=== PATIENT | female | born 1970 | race Caucasian/White ===

== ENCOUNTER 2021-10-10 09:03 | Inpatient (IN) ==
--- NOTE | 2021-09-24 15:53 | PAT Medication Instructions ---
Medication Instructions Date of Service September 24, 2021 Home Medications amlodipine 10 mg tablet 20 mg PO QPM calcium carbonate 600 mg-vitamin D3 10 mcg (400 unit) tablet (Calcium 600 + D(3)) 1 tab PO QAM docusate sodium 100 mg capsule (Stool Softener) 100 mg PO QPM escitalopram oxalate 10 mg tablet 10 mg PO QAM estradiol 1 mg tablet 1 mg PO QAM fiber 1 tab PO QPM frovatriptan 2.5 mg tablet 2.5 mg PO UD PRN lorazepam 1 mg tablet 1 mg PO Q6H PRN milk thistle 175 mg capsule 175 mg PO QAM multivitamin 1 tab PO QPM trazodone 100 mg tablet 200 mg PO HS ASK your prescriber and surgeon estradiol 1 mg tablet 1 mg PO QAM STOP taking 2 weeks before surgery milk thistle 175 mg capsule 175 mg PO QAM DO NOT take the morning of surgery calcium carbonate 600 mg-vitamin D3 10 mcg (400 unit) tablet (Calcium 600 + D(3)) 1 tab PO QAM Take morning of surgery With a small sip of water, OTHERWISE NOTHING TO EAT OR DRINK AFTER MIDNIGHT: escitalopram oxalate 10 mg tablet 10 mg PO QAM frovatriptan 2.5 mg tablet 2.5 mg PO UD PRN(if needed) lorazepam 1 mg tablet 1 mg PO Q6H PRN(if needed) Take evening before surgery amlodipine 10 mg tablet 20 mg PO QPM docusate sodium 100 mg capsule (Stool Softener) 100 mg PO QPM fiber 1 tab PO QPM lorazepam 1 mg tablet 1 mg PO Q6H PRN(if needed) multivitamin 1 tab PO QPM trazodone 100 mg tablet 200 mg PO HS Other Notes If you have any questions please call us at [phone] or [phone] or [phone] or [phone]
--- NOTE | 2021-09-28 14:02 | Anesthesiology Consultation ---
Date of Service September 28, 2021 Assessment & Plan (1) Encounter for pre-operative examination: - awaiting surgeon ordered medical clearance. - PONV: Scop patch Rx for am DOS. - COVID screening: Per assessment on 09/28/2021: Travel screen negative, no known COVID-19 positive contacts or current COVID-19 related symptoms in past 2 weeks. Surgeon arranging preop COVID testing, scheduled 10/10/2021. Awaiting results. Chart Review Chart Review: Pending: Refer to Additional Notes / Consult section and Patient seen in Pre Admission Testing Teaching & Discussion Pre-Anesthesia Teaching/Discussion Notes: Instructed NPO after midnight before surgery, except medications with 15 cc of water. Medication instructions provided according to the PAT guidelines. History Surgery Operation Date: 10/12/21 10:05 Proposed Procedures p L4-L5 Decompression and Fusion, L5-S1 Hardware Removal - Mauro Landeros, Height/Weight Height: 5 ft 2 in Weight: 90.8 kg Allergies Allergy/AdvReac Type Severity Reaction Status Date / Time adhesive Allergy Mild BLISTERS Verified 09/24/21 07:33 Medications Home Medications Medication Instructions Recorded Confirmed Last Taken amlodipine 10 mg tablet 20 mg PO QPM 09/24/21 09/24/21 Unknown calcium carbonate 600 mg-vitamin 1 tab PO QAM 09/24/21 09/24/21 Unknown D3 10 mcg (400 unit) tablet (Calcium 600 + D(3)) docusate sodium 100 mg capsule 100 mg PO QPM 09/24/21 09/24/21 Unknown (Stool Softener) escitalopram oxalate 10 mg tablet 10 mg PO QAM 09/24/21 09/24/21 Unknown estradiol 1 mg tablet 1 mg PO QAM 09/24/21 09/24/21 Unknown fiber 1 tab PO QPM 09/24/21 09/24/21 Unknown frovatriptan 2.5 mg tablet 2.5 mg PO UD PRN 09/24/21 09/24/21 Unknown lorazepam 1 mg tablet 1 mg PO Q6H PRN 09/24/21 09/24/21 Unknown milk thistle 175 mg capsule 175 mg PO QAM 09/24/21 09/24/21 Unknown multivitamin 1 tab PO QPM 09/24/21 09/24/21 Unknown trazodone 100 mg tablet 200 mg PO HS 09/24/21 09/24/21 Unknown Past Medical History Medical History (Updated 09/28/21 @ 14:15 by Emely Mckinnon PA-C) Anxiety Chronic back pain Depression GERD (gastroesophageal reflux disease) controlled, stable per pt Hypertension controlled, stable per pt-higher when in pain or stressed Migraine Sleep apnea CPAP-IRREGULAR USE Patient denies h/o stroke, seizures, heart attack, heart failure, DM, blood mike ts or blood transfusions. Exercise / Class Metabolic Activity II 4-5 Yardwork/Stairs/Walk up hill (denies CP or SOB with 1 FOS) Past Family History Family History Father Family history of diabetes mellitus Past Surgical History Surgical History (Updated 09/28/21 @ 14:22 by Emely Mckinnon PA-C) History of abdominoplasty WITH LIPOSUCTION History of section X 2 History of cholecystectomy History of colonoscopy AGE 50 History of esophagogastroduodenoscopy (EGD) History of hysterectomy TOTAL Nausea and vomiting after administration of anesthetic agent S/P bilateral breast reduction Status post insertion of spinal cord stimulator 09/25/2021. Past Anesthesia History No Hx of Anesthesia Complications and No Family Hx of Anesthesia Complications History of PONV History of PONV (Pt reports needs both IV meds and scop patch, denies adverse effects with scop patch) and Hx of Motion Sickness Social History Smoking Status: Former smoker Do You Dip or Chew Tobacco: No Smoking End Date: QUIT CASUAL SMOKING 15 YRS AGO Hx Alcohol Use: Yes Alcohol type: hard liquor alcohol intake frequency: holidays/special occasions only Hx Substance Use: No Review of Systems Patient denies chest pain, shortness of breath, dyspnea on exertion, fever, chills, cough, wheezing, or palpitations. Physical Exam Vital Signs Vitals BP 154/98 manual with patient resting with ankles uncrossed (She states is regularly checking BP at home and readings are 140s/80s, she will continue home monitoring and PCP notification parameters as per her PCP) P 73 TEMP 98.8 SP02 98% on RA RESP 18 Physical Full cervical extension range of motion without pain Full TMJ range of motion TMD 3.5 finger breaths Mallampati Score 3 Dentition: intact, multiple caps/crowns-lower left and upper right sides; denies chipped, loose or missing teeth, implants or bridges Lungs: normal respiratory effort. Clear throughout to auscultation, no adventitious breath sounds Cardiac: regular rate and rhythm, no murmurs noted Carotid arteries: negative bruit bilat Extremities: no distal extremity edema Lab Results Anesthesia Preop Results Results Anesthesia Widget: WBC 7.22 K/uL (4.8-10.8) 09/28/21 Hgb 14.7 g/dL (12.0-16.0) 09/28/21 Hct 43.9 % (37-47) 09/28/21 Plt 234 K/uL (130-400) 09/28/21 Na 138 mmol/L (136-145) 09/28/21 K 4.4 mmol/L (3.5-5.1) 09/28/21 Cl 102 mmol/L (98-107) 09/28/21 CO2 30 mmol/L (21-32) 09/28/21 BUN 10 mg/dl (6-23) 09/28/21 Creat 0.87 mg/dl (0.6-1.2) 09/28/21 Glucose Level 92 mg/dl (70-99(Fasting)) 09/28/21 PT 10.5 Seconds (9.0-12.0) 09/28/21 PTT 26.3 Seconds (21.0-31.0) 09/28/21 INR 1.0 (0.9-1.1) 09/28/21 Urine Color Yellow 09/28/21 Urine Appearance Clear (Clear) 09/28/21 Urine pH 6.5 (4.5-7.5) 09/28/21 Urine Specific [place] 1.017 (1.000-1.030) 09/28/21 Urine Protein Negative (Negative) 09/28/21 Urine Glucose (UA) Negative (Negative) 09/28/21 Urine Ketones Negative (Negative) 09/28/21 Urine Blood Negative (Negative) 09/28/21 Urine Nitrite Negative (Negative) 09/28/21 Urine Bilirubin Negative (Negative) 09/28/21 Urine Urobilinogen Negative (Negative) 09/28/21 Urine Leukocyte Esterase Negative (Negative) 09/28/21 Blood Type B Positive 09/28/21 Antibody Screen NEGATIVE 09/28/21 Testing Electrocardiogram Date: 09/28/21 NSR, rate 68 bpm Chest X-Ray Date: 09/28/21 FINDINGS: Frontal and lateral radiographs of the chest demonstrate the cardiomediastinal silhouette to be within normal limits. The lungs are clear of alveolar opacities. There is no evidence for effusion bilaterally. There is no evidence for vascular congestion. There is no acute osseous pathology. IMPRESSION: 1. No acute cardiopulmonary disease.
[~2021-10-10 09:03] MED LIST: ACETAMINOPHEN 500 MG TAB PO SCH; CeleBREX 200 MG CAP PO SCH; GABAPENTIN 900 MG DOSE PO SCH; LR 15ML/HR IV SCH; SCOPOLAMINE 1 MG TDSY TD SCH; ceFAZolin 2000MG 2,000 MG/15 ML SYR IV SCH
[2021-10-10] MEDS ORDERED: NEOSTIGMINE METHYLSULFATE 1 MG/ML 10ML VIAL ONE (10:18)
[2021-10-10] MEDS ORDERED: ONDANSETRON INJ 2 MG/ML 2 ML VIAL ONE (10:18)
[2021-10-10] MEDS ORDERED: fentaNYL citrate 100 MCG/2 ML VIAL ONE (10:18)
[2021-10-10] MEDS ORDERED: MIDAZOLAM HCL 1 MG/ML 2ML VIAL ONE (10:18)
[2021-10-10] MEDS ORDERED: PROPOFOL IV EMULSION 10 MG/ML 20 ML VIAL IV ONE (10:18)
[2021-10-10] MEDS ORDERED: LIDOCAINE 2% 2 ML VIAL/AMP(20MG/ML) INFIL ONE (10:18)
[2021-10-10] MEDS ORDERED: DEXAMETHASONE SOD INJ 4 MG/ML VIAL ONE (10:18)
[2021-10-10] MEDS ORDERED: GLYCOPYRROLATE 0.2 MG/ML VIAL ONE (10:18)
[2021-10-10] MEDS ORDERED: ONDANSETRON INJ 2 MG/ML 2 ML VIAL IV PRN (10:48)
[2021-10-10] MEDS ORDERED: ePHEDrine sulfate 50 MG/ML AMP IV PRN (10:48)
[2021-10-10] MEDS ORDERED: ATROPINE SULFATE 0.1 MG/ML 10ML SYR IV PRN (10:48)
[2021-10-10] MEDS ORDERED: fentaNYL citrate 100 MCG/2 ML VIAL IV PRN (10:48)
[2021-10-10] MEDS ORDERED: HYDROmorphone INJ 1 MG/ML SYRINGE IV PRN ×2 (10:48→14:33)
--- NOTE | 2021-10-10 10:52 | History & Physical Bridge Note ---
Date of Service October 10, 2021 History & Physical Bridge Note I have examined the patient, reviewed the History & Physical and in the interval since the performance of the History & Physical I have noted the following changes of clinical significance: no changes noted
--- NOTE | 2021-10-10 10:53 | History & Physical Report ---
Date of Service October 10, 2021 Assessment & Plan (1) Lumbar stenosis with neurogenic claudication: Plan: L4-5 decompression fusion, L5-S1 hardware removal History of Present Illness Chief Complaint: Back and left leg pain Primary Care Provider: Marielle Peraza This is a 51-year-old female presents with chronic chest and back and leg pain after failing course of nonoperative care she is here for surgical intervention. Allergies Allergy/AdvReac Type Severity Reaction Status Date / Time adhesive Allergy Mild BLISTERS Verified 10/10/21 09:24 Home Medications Medication Instructions Recorded Confirmed Type amlodipine 10 mg tablet (Norvasc) 20 mg PO QPM 09/24/21 10/10/21 History calcium carbonate 600 mg-vitamin 1 tab PO QAM 09/24/21 10/10/21 History D3 10 mcg (400 unit) tablet (Calcium 600 + D(3)) docusate sodium 100 mg capsule 100 mg PO QPM 09/24/21 10/10/21 History (Stool Softener) escitalopram oxalate 10 mg tablet 10 mg PO QAM 09/24/21 10/10/21 History (Lexapro) estradiol 1 mg tablet (Estrace) 1 mg PO QAM 09/24/21 10/10/21 History fiber 1 tab PO QPM 09/24/21 10/10/21 History frovatriptan 2.5 mg tablet (Frova) 2.5 mg PO UD PRN 09/24/21 10/10/21 History lorazepam 1 mg tablet (Ativan) 1 mg PO Q6H PRN 09/24/21 10/10/21 History milk thistle 175 mg capsule 175 mg PO QAM 09/24/21 10/10/21 History multivitamin 1 tab PO QPM 09/24/21 10/10/21 History trazodone 100 mg tablet 200 mg PO HS 09/24/21 10/10/21 History lisinopril 10 mg tablet 10 - 12.5 mg PO DAILY 10/10/21 10/10/21 History Past Med/Surg History Medical History Anxiety Chronic back pain Depression GERD (gastroesophageal reflux disease) controlled, stable per pt Hypertension controlled, stable per pt-higher when in pain or stressed Migraine Sleep apnea CPAP-IRREGULAR USE Surgical History History of abdominoplasty WITH LIPOSUCTION History of section X 2 History of cholecystectomy History of colonoscopy AGE 50 History of esophagogastroduodenoscopy (EGD) History of hysterectomy TOTAL Nausea and vomiting after administration of anesthetic agent S/P bilateral breast reduction Status post insertion of spinal cord stimulator 09/25/2021. 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
[2021-10-10] MEDS ORDERED: BUPIVACAINE 0.5 % 5 MG/1 ML MPF 30ML VIAL ONE (11:07)
[2021-10-10] MEDS ORDERED: EPINEPHrine INJ 1 MG/ML AMP ONE (11:07)
[2021-10-10] MEDS ORDERED: ceFAZolin 330 MG/ML 1 GM VIAL ONE (11:15)
[2021-10-10] MEDS ORDERED: HYDROmorphone INJ 2 MG/ML SYR/VIAL ONE (11:33)
[2021-10-10] MEDS ORDERED: FLOSEAL HEMOSTATIC MATRIX 10ML TOP ONE (12:14)
--- NOTE | 2021-10-10 13:09 | Operative Report ---
Post Operative Report Pre & Post Diagnosis Operation Date: 10/10/21 10:55 Pre-Op Diagnosis: Lumbar stenosis with neurogenic claudication Post-Op Diagnosis: Lumbar stenosis with neurogenic claudication I identified the patient and participated in the time-out.: Yes Procedure Operation Date: 10/10/21 10:55 Actual Procedures #1 removal of posterior instrumentation L5-S1. #2 exploration of fusion L5-S1. #3 lumbar decompression bilateral medial facetectomies and foraminotomies L3-L4 L4-L5. #4 posterior spinal fusion L4-5 per #5 placement posterior instr umentation L4-5 per #6 interbody fusion L4-5 per #7 placement of titanium cage 14 x 26 mm at L4-5. #8 placement locally harvested morselized autograft in the posterior gutters. #9 placement of I factor combined with V toss in the interbody space and posterior lateral gutters. Surgeon Mauro Landeros, Plsql Developer Corina Monroe Estimated Blood Loss 200 Findings See Below The patient is 5 foot 2 inches tall weighing over 90 kg with a BMI in excess of 36. The patient's body habitus did contribute to significant technical difficulty requiring her deepest retractors and longest instruments in order to perform her procedure. Specimens None Indications This is a 81-year-old female with a history of a work injury requiring fusion and now has adjacent level disease with severe radiculopathy. After failing course of nonoperative care she is here for surgical invention. Description of Procedure Patient was met with identified informed consent obtained. Patient was then taken to the operative suite underwent a patient placed in a prone position the Moy on top of the [place] frame. All bony prominences well-padded eyes inspected to ensure no external pressure placed upon the. This point the lumbar spine was prepped and draped in a sterile fashion. Sharp dissection with the assistance of Bovie cautery was formed down to and exposing the lamina and transverse processes of L4 and instrumentation at L5-S1 bilaterally. I then proceeded to move the hardware bilaterally explore the fusion mass noting it to be mature and intact. Then performed a complete laminectomy of L4 partial laminectomy of L3 including bilateral medial facetectomies foraminotomies addressing all spinal stenosis. Significant foraminal disease was particularly noted at L3-L4 on the left. After complete decompression pedicle screws were placed in L4-L5 bilaterally with assistance of fluoroscopy the proper sized hans placed. By way of a transforaminal approach on the left complete discectomy of L4-L5 was performed endplates curetted to subcortical bleeding bone and a 14 x 26 mm titanium cage filled with I factor tapped in position. The rods were then compressed locked into final position bilaterally. The transverse processes of L4 and L5 burred to subcortical being bone. I factor combined with V toss and locally harvested morselized autograft was placed in the posterior gutters. 15 round JOSÉ LUIS drain inserted. The incision was then closed with 1 Vicryl in the fascia 2-0 Vicryl subcutaneously and 4 Monocryl for final skin closure. Steri- Strip sterile dressings placed. Patient will continue medical stabilization. Please note spinal cord monitoring visualized at the procedure no changes noted. Lastly Corina Monroe was present out the entire procedure and while the patient positioning complex portion of the surgery and final skin closure. I attest to the content of the Intraoperative Record and any orders documented therein. Any exceptions are noted below.
--- NOTE | 2021-10-10 13:37 | Fluoroscopy Report ---
FL lumbar spine 2-3V CLINICAL HISTORY: Hardware removal. L4-L5 discectomy and fusion. COMPARISON STUDY: Lumbar spine fluoroscopic images March 08, 2016. FLUOROSCOPY TIME: 16 seconds. FLUOROSCOPIC IMAGES: 2 FINDINGS: Previous hardware was removed at the L5-S1 level. Interval L4-L5 discectomy, posterior deco mpression and bilateral pedicle screw fusion is present. Hardware is intact. The surgeon was aware of the radiodensity within the operative bed. A right-sided hans was subsequently placed. IMPRESSION: Fluoroscopy provided during hardware removal and subsequent L4-L5 discectomy, posterior decompression and fusion. ACT 112: Negative or not required by law. Electronically signed by: Saul Ricci M.D. 10/10/2021 1:36 PM
[2021-10-10] MEDS ORDERED: ACETAMINOPHEN 1,000 MG/100 ML VIAL IV PRN (14:33)
[2021-10-10] MEDS ORDERED: DO NOT ADMINISTER PNEUMOCOCCAL VACCINE PRN (14:33)
[2021-10-10] MEDS ORDERED: FAMOTIDINE 20 MG TAB PO PRN (14:33)
[2021-10-10] MEDS ORDERED: ACETAMINOPHEN 500 MG TAB PO PRN (14:33)
[2021-10-10] MEDS ORDERED: PROMETHAZINE HCL 12.5 MG in SODIUM CHLORIDE 0.9% 50 ML IV PRN (14:33)
[2021-10-10] MEDS ORDERED: HYDROmorphone INJ 0.5 MG/0.5 ML SYR IV PRN (14:33)
[2021-10-10] MEDS ORDERED: hydrOXYzine HCl 25 MG TAB PO PRN (14:33)
[2021-10-10] MEDS ORDERED: ONDANSETRON 4 MG OD TAB PO PRN (14:33)
[2021-10-10] MEDS ORDERED: diphenhydrAMINE Capsule 25 MG CAP PO PRN (14:33)
[2021-10-10] MEDS ORDERED: MAGNESIUM HYDROXIDE SUSP 30 ML UDC PO PRN (14:33)
[2021-10-10] MEDS ORDERED: SOD PHOSPHATE/SOD BIPHOSPHATE ENEMA 132 ML BTL PR PRN (14:33)
[2021-10-10] MEDS ORDERED: bisacodyL 10 MG SUPP PR PRN (14:33)
[2021-10-10] MEDS ORDERED: DO NOT ADMINISTER FLU VACCINE PRN (14:33)
[2021-10-10] MEDS ORDERED: NALOXONE HCL 0.4 MG/1 ML VIAL/CARP IV PRN (14:33)
[2021-10-10] MEDS ORDERED: LORazepam 0.5 MG TAB PO PRN (14:33)
[2021-10-10] MEDS ORDERED: METOCLOPRAMIDE HCL INJ 5 MG/ML 2 ML VIAL IV PRN (14:33)
[2021-10-10] MEDS ORDERED: LORazepam 2 MG/1 ML VIAL IV PRN (14:33)
[2021-10-10] MEDS ORDERED: ALUMINUM/MAGNESIUM SUSP 30 ML UDC PO PRN (14:33)
[2021-10-10] MEDS: CHECK SCOPOLAMINE PATCH PLACEMENT SCH ×2 (14:35→15:27)
[2021-10-10] MEDS: LACTATED RINGER'S 1,000 ML IV SCH (15:00)
--- NOTE | 2021-10-10 15:22 | Hospitalist Consultation ---
Date of Consultation October 10, 2021 Assessment & Plan (1) Lumbar stenosis with neurogenic claudication: -S/p L4-5 fusion. -Defer IVF, pain management, bowel regimen, ABX to surgical team. (2) Hypertension: -Takes lisinopril/HCTZ 10/12.5 in the morning, may resume lisinopril tomorrow AM if creatinine remains at baseline. (3) Raynaud disease: -Takes amlodipine in the evening, may resume amlodipine home dosing tonight if BP > 110/75. (4) Anxiety: -Takes hydroxyzine as needed, continue this prn. (5) Depression: -Continue Lexapro 10 mg daily. (6) Migraine: - States she only gets migraines occasionally, has Compazine ordered prn which she has used in the past for migraines. Continue Compazine and frovatriptan as needed. (7) Insomnia: -Patient takes 200 mg at night, will reduce this dose to 50 mg for tonight given she is POD 0 coming off anesthesia and will be receiving pain medications on top of this. Supervising Physician Co-Signing Physician Notes Patient seen and examined, chart reviewed, case discussed with Radha Sam and I agree with the assessment and plan as above except as otherwise noted General: A&Ox3. NAD. Cooperative. HEENT: Atraumatic, normocephalic. Vision/hearing grossly intact. Pulm: CTAB A&P. -wheezes, -rales, -rhonchi. Symmetrical chest rise. No increase in work of breathing. No respiratory distress. Cardiac: RRR, -mrg. Radial pulses intact and symmetrical. Abdominal: Nontender, nondistended, soft. BS present. Ext: intact, atraumatic. Labs and images reviewed Sedation for medical management of a patient status post lumbar decompression and spinal fusion for lumbar stenosis with neurogenic claudication. Patient with history of anxiety, GERD, hypertension, depression. Baseline kidney function normal, last creatinine 0.87. Morning BMP pending. Resume lisinopril/HCTZ in morning, hold if creatinine bumps. May resume home dosing of evening amlodipine 10 mg p.o. nightly. Continue Lexapro. Will dose reduce trazodone from temporarily, resume full dose tomorrow nightly as needed. Protonix daily for stress GI prophylaxis and history of GERD. History of Present Illness Reason for Consultation: Medical management Attending Physician: Mauro Landeros, DO History of Present Illness Patient is a 51-year-old female with past medical history of lumbar stenosis, hypertension, anxiety, depression, GERD, insomnia, and occasional migraines who presents today for an L4-5 decompression fusion performed by Dr. Landeros after failed conservative treatment. Hospitalist service has been consulted for medical management. I am seeing patient postoperatively, she currently complains of mild back pain and nausea, had just received pain and nausea medications prior to my exam. She is otherwise without complaints, no fever/chills, headache, chest pain, shortness of breath, abdominal pain, numbness/tingling, weakness. Patient reports she was started on lisinopril within the past two weeks, BP currently 135/90. Other home meds include trazodone, lexapro, amlodipine (Raynaud's), estradiol, frovatriptan prn, hydroxyzine prn. Allergies Allergy/AdvReac Type Severity Reaction Status Date / Time adhesive Allergy Mild BLISTERS Verified 10/10/21 09:24 Home Medications Medication Instructions Recorded Confirmed Type amlodipine 10 mg tablet (Norvasc) 10 mg PO QPM 09/24/21 10/10/21 History calcium carbonate 600 mg-vitamin 1 tab PO QAM 09/24/21 10/10/21 History D3 10 mcg (400 unit) tablet (Calcium 600 + D(3)) docusate sodium 100 mg capsule 100 mg PO QPM 09/24/21 10/10/21 History (Stool Softener) escitalopram oxalate 10 mg tablet 10 mg PO QAM 09/24/21 10/10/21 History (Lexapro) estradiol 1 mg tablet (Estrace) 1 mg PO QAM 09/24/21 10/10/21 History fiber 1 tab PO QPM 09/24/21 10/10/21 History frovatriptan 2.5 mg tablet (Frova) 2.5 mg PO UD PRN 09/24/21 10/10/21 History lorazepam 1 mg tablet (Ativan) 1 mg PO Q6H PRN 09/24/21 10/10/21 History milk thistle 175 mg capsule 175 mg PO QAM 09/24/21 10/10/21 History multivitamin 1 tab PO QPM 09/24/21 10/10/21 History trazodone 100 mg tablet 200 mg PO HS 09/24/21 10/10/21 History lisinopril 10 mg tablet 10 - 12.5 mg PO DAILY 10/10/21 10/10/21 History Patient History Medical History (Updated 10/10/21 @ 16:16 by Radha Sam PA-C) Anxiety Chronic back pain Depression GERD (gastroesophageal reflux disease) controlled, stable per pt Hypertension controlled, stable per pt-higher when in pain or stressed Migraine Sleep apnea CPAP-IRREGULAR USE Surgical History History of abdominoplasty WITH LIPOSUCTION History of section X 2 History of cholecystectomy History of colonoscopy AGE 50 History of esophagogastroduodenoscopy (EGD) History of hysterectomy TOTAL Nausea and vomiting after administration of anesthetic agent S/P bilateral breast reduction Status post insertion of spinal cord stimulator 09/25/2021. 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 Beliefs That Will Affect Care: None Current Living Situation: Spouse current occupational status: retired Other Information That Helps Us Care for You: No Feels Safe at Home: Yes Safety Concerns: Feels Safe At This Time Assistive Devices: None Review of Systems Review of Systems: Constitutional: No fever, sweats or chills Eyes: No diplopia, no worsening or blurred vision ENT: normal hearing, no trouble swallowing Respiratory: No cough, sputum, dyspnea at rest or on exertion Cardiovascular: No chest pain, tightness or palpitations Abdomen:repotrs nausea; no pain, vomiting, diarrhea or constipation Musculoskeletal: mild back pain at site of operation; calf pain, swelling Neurologic: No weakness, numbness/tingling, or balance problems Psychiatric: No anxiety or depression Skin: No rash or itch Physical Exam Physical Exam: General: awake, alert, no apparent distress Head: Normocephalic, atraumatic ENT: PERRL, EOMI, no pharyngeal exudate, mucous membranes moist Chest: Clear to auscultation, on room air, no adventitious breath sounds Cardiac: Regular rate and rhythm, no murmur, no JVD, normal peripheral pulses, good capillary refill Abdominal: NABS x 4 quadrants, soft, nontender to palpation, no rebound, guarding or tenderness Extremities: Normal inspection, no peripheral edema or erythema, calfs nontender to palpation Psych: Normal mood and affect Neuro: AAO x 3, strength intact bilaterally and rated 5/5, no motor deficits, speech is clear, no peripheral sensory deficits Skin: no rash or erythema Results & Data Results & Data ([facility]) Vital Signs (Past 12 Hours) Vital Signs Temp Pulse Pulse Resp BP BP Pulse Ox 10/10/21 14:55 36.3 C L 77 16 122/79 94 10/10/21 14:25 36.6 C 79 16 133/86 93 10/10/21 13:55 86 17 108/89 96 10/10/21 13:45 92 H 10 L 133/90 96 10/10/21 13:35 93 H 11 L 133/74 95 10/10/21 13:28 36.5 C 89 15 111/78 95 10/10/21 09:28 36.6 C 72 20 141/96 H 97 Diagnostic Findings Lumbar Spine X-Ray 10/10/21 10:55 FL lumbar spine 2-3V CLINICAL HISTORY: Hardware removal. L4-L5 discectomy and fusion. COMPARISON STUDY: Lumbar spine fluoroscopic images March 08, 2016. FLUOROSCOPY TIME: 16 seconds. FLUOROSCOPIC IMAGES: 2 FINDINGS: Previous hardware was removed at the L5-S1 level. Interval L4-L5 discectomy, posterior decompression and bilateral pedicle screw fusion is present. Hardware is intact. The surgeon was aware of the radiodensity within the operative bed. A right-sided hans was subsequently placed. IMPRESSION: Fluoroscopy provided during hardware removal and subsequent L4-L5 discectomy, posterior decompression and fusion. PG Care Time/CCT Total # of Minutes Spent Total Time Spent with Patient: Total time spent is greater than 50% in coordination of care (as documented) at patient's floor/unit and/or counseling patient: Coding Level of Care Code 29258 Inpt Consult Level 2 Diagnoses Lumbar stenosis with neurogenic claudication M48.062 Hypertension I10 Anxiety F41.9 Depression F32.A Migraine G43.909 Insomnia G47.00 Raynaud disease I73.00
[2021-10-10] MEDS: ONDANSETRON INJ 2 MG/ML 2 ML VIAL IV PRN ×2 (15:26→20:27)
[2021-10-10] MEDS: KETOROLAC TROMETHAMINE 15 MG/ML VIAL IV SCH ×2 (15:27→20:16)
--- NOTE | 2021-10-10 15:55 | Anesthesiology Progress Note ---
Date of Service October 10, 2021 Anesthesia Post Procedure Vital Signs Vital Signs: Temp Pulse Pulse Resp BP BP Pulse Ox 10/10/21 15:22 36.5 C 78 16 135/90 93 10/10/21 14:55 36.3 C L 77 16 122/79 94 10/10/21 14:25 36.6 C 79 16 133/86 93 10/10/21 13:55 86 17 108/89 96 10/10/21 13:45 92 H 10 L 133/90 96 10/10/21 13:35 93 H 11 L 133/74 95 10/10/21 13:28 36.5 C 89 15 111/78 95 10/10/21 09:28 36.6 C 72 20 141/96 H 97 Pain Intensity Back: Pain Intensity: 6 Transfer of Care Handoff Completed per policy Notes Mental Status: alert / awake / arousable and participated in evaluation Patient Amnestic to Procedure: Yes Nausea / Vomiting: adequately controlled Pain: adequately controlled Airway Patency, RR, SpO2: stable & adequate BP & HR: stable & adequate Hydration State: stable & adequate Anesthetic Complications: no major complications apparent and Pt Satisfied with anesthetic care
[2021-10-10] MEDS: ceFAZolin 2000MG 2,000 MG/15 ML SYR IV SCH (20:10)
[2021-10-10] MEDS: traMADol HCL 50 MG TABLET PO PRN (20:16)
[2021-10-10] MEDS: DOCUSATE SODIUM/SENNA 50/8.6MG TAB PO SCH (20:17)
[2021-10-10] MEDS: MULTIVITAMIN TAB PO SCH (20:17)
[2021-10-10] MEDS: DOCUSATE SODIUM 100 MG CAP PO SCH (20:18)
[2021-10-10] MEDS: CALCIUM POLYCARBOPHIL 625MG TAB PO SCH (20:18)
[2021-10-10] MEDS ORDERED: traZODone HCL 100 MG TAB PO SCH (21:00)
[2021-10-10] MEDS ORDERED: amLODIPine BESYLATE 5 MG TAB PO SCH (21:00)
[2021-10-10] MEDS: traZODone HCL 50 MG TAB PO PRN (22:04)
[2021-10-11] MEDS: LACTATED RINGER'S 1,000 ML IV SCH (00:56)
[2021-10-11] MEDS: CHECK SCOPOLAMINE PATCH PLACEMENT SCH ×3 (00:56→16:16)
[2021-10-11] MEDS: KETOROLAC TROMETHAMINE 15 MG/ML VIAL IV SCH ×2 (03:22→09:00)
[2021-10-11] MEDS: ceFAZolin 2000MG 2,000 MG/15 ML SYR IV SCH (03:28)
[2021-10-11] MEDS: POLYETHYLENE (MIRALAX) 17 GM PACK PO SCH ×2 (06:04→12:38)
[2021-10-11] MEDS: traMADol HCL 50 MG TABLET PO PRN ×2 (06:16→17:54)
[2021-10-11 07:29] LABS: Basophils # (auto) 0.02 K/uL (0-0.2); Basophils % (auto) 0.1 %; Eosinophils # (auto) 0.01 K/uL (0-0.5); Eosinophils % (auto) 0.1 %; Hematocrit (blood only) 36.2 % (37-47); Immature Granulocytes # (auto) 0.04 K/uL (0.00-0.02); Immature Granulocytes % (auto) 0.3 %; Lymphocytes # (auto) 1.97 K/uL (1.2-3.4); Lymphocytes % (auto) 14.2 %; Mean Corpuscular Hemoglobin 30.8 pg (25-34); Mean Corpuscular Hgb Conc 33.1 g/dL (32-36); Mean Corpuscular Volume 92.8 fL (80-100); Mean Platelet Volume 9.8 fL (7.4-10.4); Monocytes # (auto) 1.51 K/uL (0.11-0.59); Monocytes % (auto) 10.8 %; Neutrophils # (auto) 10.37 K/uL (1.4-6.5); Neutrophils % (auto) 74.5 %; Platelet Count 198 K/uL (130-400); RDW Coefficient of Variation 13.4 % (11.5-14.5); RDW Standard Deviation 45.3 fL (36.4-46.3); White Blood Count 13.92 K/uL (4.8-10.8)
[2021-10-11 08:05] LABS: BUN Creatinine Ratio 15.1 (10-20); Calcium 9.1 mg/dl (8.5-10.1); Creatinine Clr Calc Pharmacy 74.8 ml/min; Est GFR (African American) 82.5 ml/min; Est GFR (Non-African American) 71.2 ml/min; Potassium 4.3 mmol/L (3.5-5.1)
[2021-10-11] MEDS: estradioL 1 MG TAB PO SCH (09:00)
[2021-10-11] MEDS: lisinopril 10 MG TAB PO SCH (09:00)
[2021-10-11] MEDS: ESCITALOPRAM OXALATE 10 MG TAB PO SCH (09:00)
[2021-10-11] MEDS: dexAMETHasone 6 MG in SYRINGE 0 ML IV SCH (09:00)
[2021-10-11] MEDS: CALCIUM 600MG + VIT D 400 IU TAB PO SCH (09:00)
[2021-10-11] MEDS: PANTOprazole 40 MG TAB PO SCH (09:00)
--- NOTE | 2021-10-11 13:02 | Orthopedic Progress Note ---
Date of Service October 11, 2021 Assessment & Plan (1) Lumbar stenosis with neurogenic claudication: Plan: At this time we will continue physical therapy monitor JOSÉ LUIS operatively discharge home next few days. Admission and Anticipated Discharge Date Admission Date: October 10, 2021 Subjective Back pain controlled leg pain improved Physical Exam Physical Exam: Patient is good strength testing appears comfortable. Results & Data ([facility]) Vital Signs (Past 12 Hours) Vital Signs Temp Pulse Resp BP Pulse Ox 10/11/21 11:18 36.9 C 78 18 130/76 94 10/11/21 07:12 36.8 C 66 16 110/73 93 10/11/21 03:27 36.8 C 62 18 112/75 94
--- NOTE | 2021-10-11 16:38 | Hospitalist Progress Note ---
Date of Service October 11, 2021 Assessment & Plan (1) Lumbar stenosis with neurogenic claudication: Plan: -L4-5 decompression/fusion, L5-S1 Hardware Removal-- POD#1 -recommend postoperative pain management, PT/OT, incentive spirometry--per primary team (2) Leukocytosis: Plan: ---> likely steroid-induced as patient on Decadron -Patient afebrile and hemodynamically stable -Preoperative urinalysis not grossly infected. Patient without urinary complaints -CXR done 09/28 showing no acute cardiopulmonary process. Patient without respiratory complaints -Covid negative (3) Hypertension: Plan: -Resume lisinopril/HCTZ 05/08.5 (4) Raynaud disease: Plan: -Resume Amlodipine (5) Anxiety: Plan: -Continue Hydroxyzine as needed (6) Depression: Plan: -Continue Lexapro 10 mg daily. (7) Migraine: Plan: - States she only gets migraines occasionally, has Compazine ordered prn which she has used in the past for migraines. Continue Compazine and frovatriptan as needed. (8) Insomnia: Plan: -Continue trazodone Plan: At this point time, patient offers no medical contraindication to proceed with discharge when cleared by primary team. We will sign off on this patient from a medical standpoint but do not hesitate to reconsult should a problem arise. Thank you for allowing us to participate in her care. Admission and Anticipated Discharge Date Admission Date: October 10, 2021 Subjective Patient seen on daily rounds today. She is POD #1 s/p lumbar decompression with fusion. Pain is adequately controlled. Ambulating to and from the bathroom without difficulty. Tolerating pain medication without ill effects. Denies fevers, chills, chest pain, shortness of breath, abdominal pain, nausea or vomiting. Patient denies a history of PE/DVT. Denies personal, and/or family history of DVT, PE, blood dyscrasia. Lives in a 3 story home with her . Hoping to be discharged home when ready. Review of Systems Review of Systems: All systems reviewed and are unremarkable except as noted in HPI and below Denies fevers, chills, headache, nasal congestion, sore throat, cough, chest pain, shortness of breath, palpitations, orthopnea, PND, abdominal pain, nausea, vomiting, diarrhea, constipation, dysuria, hematuria, frequency, back pain, joint pain or swelling, easy bruising or bleeding, skin lesions or rashes. Physical Exam Physical Exam: General: Resting comfortably in her hospital bed. NAD. HEENT: Head is AT/NC. Buccal mucosa is moist and pink Neck: No JVD. Negative hepatojugular reflex Cardiac: RRR without M/G/R Lungs: CTA without W/R/R Abdomen: Normoactive X4. Soft and nontender in all quadrants. Extremities: No peripheral clubbing cyanosis or edema. Back with surgical dress ing that is dry and intact. JOSÉ LUIS drain noted. Peripheral pulses to the bilateral lower extremities are intact and symmetrical. Neuro: A&O X4. Cranial nerves II through XII are grossly intact. No focal neuro deficits Skin: Multiple tattoos Psych: Appropriate affect. Pleasant and cooperative Results & Data Results & Data ([facility]) Vital Signs (Past 12 Hours) Vital Signs Temp Pulse Resp BP Pulse Ox 10/11/21 15:41 36.7 C 71 18 111/74 92 10/11/21 11:18 36.9 C 78 18 130/76 94 10/11/21 07:12 36.8 C 66 16 110/73 93 Laboratory Results 10/11/21 07:10 10/11/21 07:10 PG Care Time/CCT Total # of Minutes Spent Total Time Spent with Patient: Total time spent is greater than 50% in coordination of care (as documented) at patient's floor/unit and/or counseling patient: Coding Level of Care Code 68224 Inpt Consult Level 3 Diagnoses Lumbar stenosis with neurogenic claudication M48.062 Hypertension I10 Raynaud disease I73.00 Anxiety F41.9 Depression F32.A Migraine G43.909 Insomnia G47.00 Leukocytosis D72.829
[2021-10-11] MEDS: MULTIVITAMIN TAB PO SCH (20:42)
[2021-10-11] MEDS: CALCIUM POLYCARBOPHIL 625MG TAB PO SCH (20:43)
[2021-10-11] MEDS: DOCUSATE SODIUM 100 MG CAP PO SCH (20:43)
[2021-10-11] MEDS: DOCUSATE SODIUM/SENNA 50/8.6MG TAB PO SCH (20:43)
[2021-10-11] MEDS ORDERED: amLODIPine BESYLATE 5 MG TAB PO SCH (21:00)
[2021-10-11] MEDS: oxyCODONE HCL IR 5 MG TAB (IMMEDIATE RELEASE) PO PRN (22:17)
[2021-10-11] MEDS: traZODone HCL 50 MG TAB PO PRN (22:17)
[2021-10-12] MEDS: CHECK SCOPOLAMINE PATCH PLACEMENT SCH ×2 (00:06→08:22)
[2021-10-12] MEDS: oxyCODONE HCL IR 5 MG TAB (IMMEDIATE RELEASE) PO PRN (07:33)
--- NOTE | 2021-10-12 08:41 | Discharge Summary ---
Date of Service October 12, 2021 Admission HPI Per Admitting Provider This is a 51-year-old female presents with chronic chest and back and leg pain after failing course of nonoperative care she is here for surgical intervention. Discharge Data Consultations 10/10/21 14:33 Consult Hospitalist Routine Procedures Performed Operation Date: 10/10/21 10:55 Actual Procedures p L4-L5 Decompression and Fusion, L5-S1 Hardware Removal, Spinal Cord Monitoring(Not Applicable) - Mauro Landeros DO Hospital Course (1) Lumbar stenosis with neurogenic claudication: Patient is a pleasant 51-year-old female with history physical examination (in the above-mentioned diagnosis. For this reason she was brought to the operating room and undergone a removal of hardware at L5-S1 lumbar decompression and fusion at L4-5. She left the operating room JOSÉ LUIS drain and Graham in place and was transferred to PACU in stable condition. She was then transferred to the orthopedic floor. She was placed on GI DVT prophylaxis and seen by physical therapy postop day #1. Throughout her hospital course her abdomen remained supple nontender calves remained supple nontender. On postop day #2 she is deemed safe for home discharge. We reviewed her discharge instructions in detail. We will DC her drain and have dressing change prior to discharge. We will see her back in the office approximately 2 weeks or sooner if develops any increased pain fevers or chills.
[2021-10-12] MEDS: dexAMETHasone 6 MG in SYRINGE 0 ML IV SCH (09:05)
[2021-10-12] MEDS: lisinopril 10 MG TAB PO SCH (09:06)
[2021-10-12] MEDS: ESCITALOPRAM OXALATE 10 MG TAB PO SCH (09:06)
[2021-10-12] MEDS: estradioL 1 MG TAB PO SCH (09:06)
[2021-10-12] MEDS: CALCIUM 600MG + VIT D 400 IU TAB PO SCH (09:06)
[2021-10-12] MEDS: PANTOprazole 40 MG TAB PO SCH (09:07)
== END 2021-10-12 12:14 | disposition home or self-care (01) | DRG 455 ==
LOC: ASU 09:03 → 3W 13:13